=== PATIENT | female | born 1995 | race Caucasian/White ===

== ENCOUNTER → 2025-03-19 | Outpatient (REF) | payer OTHER ==
[~2025-03-19] MED LIST: IOPAMIDOL 370 MG/ML 100 ML INFUS..BTL INJ ONE; PRENATA CHEWAB1 EACH PO
== END ==
LOC: CT 11:47
PROVIDERS: ATTEND Nurse Practitioner
DX: R10.84 Generalized abdominal pain (principal)
CPT/HCPCS: 74177; 81025; Q9967